=== PATIENT | female | born 1980 | race Two or more races ===

== ENCOUNTER → 2018-11-04 | Outpatient (CLI) | payer OTHER | END | disposition home or self-care (01) | LOC: RX STUDY 10:03 | DX: N97.1 Female infertility of tubal origin (principal) ==

== ENCOUNTER 2020-08-28 09:51 | Outpatient (CLI) | payer OTHER | END 2020-08-28 10:05 | disposition home or self-care (01) | LOC: SONOGRAMA 09:51 → MAMO-SONO 10:00 → SONOGRAMA 10:05 | PROVIDERS: ATTEND Obstetrics & Gynecology Reproductive Endocrinology | DX: D25.0 Submucous leiomyoma of uterus (principal) ==